=== PATIENT | male | born 1995 | race Caucasian/White ===

== ENCOUNTER 2024-02-08 16:18 | Emergency (ER) | payer OTHER, SELFPAY ==
[2024-02-08] VITALS (7 sets, daily range): BP systolic 107–138; BP diastolic 69–88; PULSE 54–76; BMI 22.7
[2024-02-08 17:12] LABS: % Basophils 0.3 % (0-2); % Eosinophils 4.7 % (0-6); % Immature Granulocytes 0.3 % (0-0.5); % Lymphocytes 29.7 % (20.5-51.1); % Monocytes 8.5 % (1.7-9.3); % Neutrophils 56.5 % (42.2-75.2); Absolute Eosinophils 0.3 10^3/uL (0-0.7); Absolute Lymphocytes 2.2 10^3/uL (1.2-3.4); Absolute Monocytes 0.6 10^3/uL (0.1-0.6); Absolute Neutrophils 4.1 10^3/uL (1.4-6.5); Hematocrit 44.6 % (39.0-52.0); Hemoglobin 15.6 g/dL (13.0-18.0); Mean Corpuscular Volume 88.7 fL (80.0-94.0); Nucleated Red Blood Cells % 0 % (-); Platelet Count 253 10^3/uL (130-400); Red Blood Cell Count 5.03 10^6/uL (4.70-6.10); Red Cell Dist. Width 12.3 % (11.5-14.5); White Blood Cell Count 7.3 10^3/uL (4.8-10.8)
[2024-02-08 17:24] LABS: ALT (SGPT) 27 U/L (0-50); AST (SGOT) 28 U/L (17-59); Albumin 5.1 g/dl (3.5-5.0); Alkaline Phosphatase 34 U/L (38-126); Blood Urea Nitrogen 13 mg/dl (9-20); Carbon Dioxide 26 mmol/L (22-30); Chloride 102 mmol/L (98-107); Glucose 91 mg/dl (70-99); Potassium 4.5 mmol/L (3.5-5.1); Sodium 142 mmol/L (135-145); Total Bilirubin 0.5 mg/dl (0.2-1.3); Total Protein 7.9 g/dl (6.3-8.2); eGFR > 60.00
--- NOTE | 2024-02-08 19:55 | ED.GENMED ---
History of Present Illness
General
Chief Complaint: Dizziness
Time Seen by Provider: 02/08/24 19:05
History of Present Illness
History of Present Illness:
28-year-old male no past medical history presenting with dizziness starting this afternoon while working. 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
out. Patient denies any other symptoms including chest pain, shortness of breath, abdominal pain, headaches, numbness, weakness, or tingling. Patient states that symptoms have since resolved. Patient states that this has happened multiple times
since October. Patient states that he followed with his primary care doctor last week about it, had labs but does not know the results. Patient states that his workspace is well ventilated. Patient has noticed that this typically happens in the
afternoon after lunch, never in the morning. Patient states that typically happens while at work.
Past History
Past History
ED Past Medical History: None
ED Past Surgical History: None
Social History
Tobacco: Non-smoker
Phy Exam
Physical Exam
Physical Exam:
General: Alert, no acute distress
Head: NCAT
Eyes: clear conjunctiva, PERRLA, EOMI. No nystagmus
Neck: supple
Cardiac: regular rate and rhythm, no murmur
Lungs: clear to auscultation bilaterally. No wheezes, rales, or rhonchi. Speaking full unlabored sentences. No respiratory distress.
Abdomen: soft, nondistended nontender. No rebound or guarding.
MSK: no lower extremity edema bilaterally. No deformity
Skin: warm, dry
Neuro: Alert and oriented x3. Cranial nerves II through XII grossly intact no focal deficits. No pronator drift bilateral upper and lower extremities. Normal finger-nose and [id number]. Sensation intact throughout bilateral upper and lower
extremities. No slurred speech
Course
Orders/Labs/Results
Orders:
Orders
02/08/24 16:19
EKG [Electrocardiogram (*1)] Urgent
Reason for Study: Vertigo / Dizzy
EKG- Treatment ONCE
02/08/24 16:59
Complete Blood Count/With Diff Urgent
Comprehensive Metabolic Panel Urgent
Abnormal Lab Results
02/08/24
16:59
Alkaline Phosphatase 34 L U/L
(38-126)
Albumin 5.1 H g/dl
(3.5-5.0)
02/08/24 16:59
02/08/24 16:59
Vital Signs
Initial and Last Documented VS:
Initial Vital Signs
Temp Pulse Resp BP Pulse Ox
97.8 F 67 20 138/88 100
02/08/24 16:21 02/08/24 16:21 02/08/24 16:21 02/08/24 16:21 02/08/24 16:21
Last Documented Vital Signs
Temp Pulse Resp BP Pulse Ox
97.8 F 56 19 107/70 100
02/08/24 16:21 02/08/24 19:45 02/08/24 19:45 02/08/24 19:00 02/08/24 18:00
MDM/Problems Addressed
Differential Diagnosis Includes:
Vasovagal, orthostatic, electrolyte abnormality, anemia, vertigo, hypoglycemia, ORVILLE, dehydration
MDM/Problems Addressed:
28-year-old male with no past medical history presenting with lightheadedness starting while he was working as a service tech/welder this afternoon. Patient states that he sat down drink some water, follow-up with better. Patient states that symptoms
completely resolved after an hour and a half. Patient states that this happened multiple times since October. Patient denies any symptoms at this time. No red flags that require CT imaging of the head. Labs reviewed, no electrolyte abnormality, no
anemia, no ORVILLE, normal glucose. EKG shows normal sinus rhythm at 60 bpm with NV 188 QTc 385 no acute ischemic changes. Discussed results with patient at bedside. Stable for discharge home with PCP follow-up
*Critical Care Note
Total Time (30-74mins, 75-104mins- exclusive of procedures): Not Applicable
ED Attending Note
-
Portions of this chart may have been created with voice recognition software.� Occasional wrong word or��sound alike� substitutions may have occurred due to the inherent limitations of voice recognition software.
Discharge Plan
Departure
Patient Disposition: Home (Routine Discharge)
Date of Disposition: 02/08/24
Time of Disposition: 20:00
Patient with high blood pressure during this ER visit?: Yes
Discharge Problem:
Intermittent lightheadedness
Instructions: Dizziness, Nonvertigo, (DC), BLOOD PRESSURE
Prescriptions:
No Action
No Current Medications
Referrals:
Gagandeep Dudley, DO [Family Provider] -
Activity Restrictions/Additional Instructions:
Follow-up with primary care doctor in 1 to 2 days
Return to the emergency department for numbness, weakness, tingling or new/worsening symptoms
Interventions
Interventions:
*Risk Screen - Suicide Last Done: 02/08/24 16:21
*General Assessment Last Done: 02/08/24 16:21
*Neglect/Abuse Screening Last Done: 02/08/24 16:21
ED- Fall Risk Assessment Last Done: 02/08/24 19:00
*ED COVID-19 Vaccine History Last Done: 02/08/24 20:10
*Nursing Disposition Last Done: 02/08/24 20:10
ED- Neurological Assessment Last Done: 02/08/24 19:00
ED- Cardiac Assessment Last Done: 02/08/24 19:00
Discharge Date and Time
Discharge Date/Time: 02/08/24 20:11
Print Language: [place]
== END 2024-02-08 20:11 | disposition home or self-care (01) ==
LOC: EMR 16:18
PROVIDERS: Emergency Medicine; EMERGENCY PHYSICIAN Emergency Medicine; FAMILY PHYSICIAN Family Medicine
DX: R42 Dizziness and giddiness (principal); R03.0 Elevated blood-pressure reading, without diagnosis of hypertension; Y93.89 Activity, other specified; Y92.89 Other specified places as the place of occurrence of the external cause; Y99.0 Civilian activity done for income or pay
CPT/HCPCS: 99283; 80053; 85025; 93005